=== PATIENT | female | born 1985 | race Two or more races ===

== ENCOUNTER 2022-05-03 21:30 | Emergency (ER) | payer MEDICAID, OTHER ==
[~2022-05-03] VITALS: Ht 167.6 cm; Wt 95.6 kg
[2022-05-03] MEDS ORDERED: ALBUTEROL SULF 2.5 MG/0.5ML(0.5%) NEB SOLN NEB ONE (22:30)
[2022-05-03] MEDS ORDERED: IPRATROPIUM BROM 0.5 MG/2.5ML INH SOL NEB ONE (22:30)
[2022-05-04] MEDS ORDERED: ALBU108A5 IN (00:59)
[2022-05-04] MEDS ORDERED: PROM1SOL4 PO (00:59)
[2022-05-04 02:15] VITALS: BP 130/80
== END 2022-05-04 02:18 | disposition home or self-care (01) ==
LOC: ER 21:32
DX: U07.1 COVID-19 (principal)
CPT/HCPCS: 36415; 71046; 87426; 87804; 94640; 99284; J7644